=== PATIENT | female | born 1990 | race Hispanic/Latino ===

== ENCOUNTER 2017-12-08 20:50 | Emergency (ER) | payer BC ==
[~2017-12-08] VITALS: Ht 147.3 cm; Wt 75.7 kg
[2017-12-08] MEDS ORDERED: TETRACAINE HCL 0.5% OPTH SOLN 4 ML BTL OP ONE (21:15)
[2017-12-08] MEDS ORDERED: HYDROCODONE/APAP 10MG-325MG TAB PO ONE (21:15)
== END 2017-12-08 21:37 | disposition home or self-care (01) ==
LOC: ER 20:50
DX: H60.501 Unspecified acute noninfective otitis externa, right ear (principal)
CPT/HCPCS: 99283